=== PATIENT | male | born 1970 ===

== ENCOUNTER 2018-12-11 21:10 | Emergency (ER) | payer SELFPAY ==
--- NOTE | 2018-12-11 21:41 | RAD ---
LEFT HAND THREE VIEWS: 12/11/2018 HISTORY: Pain to left hand after hand was caught in a door handle last night. Swelling, which has increased t laurie. FINDINGS: There is no evidence of a fracture, dislocation, or other osseous abnormality involving the left hand . There is suggestion of mild subcutaneous soft tissue swelling dorsal to the metatarsals heads note d on the lateral projection. IMPRESSION: Subcutaneous soft tissue swelling without evidence of an acute osseous abnormality. POS: NORM
== END 2018-12-11 22:11 | disposition home or self-care (01) ==
LOC: ERS 21:10
DX: S69.82XA Other specified injuries of left wrist, hand and finger(s), initial encounter (principal); I10 Essential (primary) hypertension; F32.9 Major depressive disorder, single episode, unspecified; F41.9 Anxiety disorder, unspecified; W23.0XXA Caught, crushed, jammed, or pinched between moving objects, initial encounter